=== PATIENT | male | born 1965 | race African-American/Black ===

== ENCOUNTER 2018-06-06 21:11 | Emergency (ER) | payer BC ==
[~2018-06-06] VITALS: Ht 180.3 cm; Wt 102.1 kg
[2018-06-06 21:29] LABS: URINE BILIRUBIN NEGATIVE (Negative); URINE BLOOD NEGATIVE (Negative); URINE CLARITY CLEAR; URINE COLOR YELLOW; URINE GLUCOSE-RANDOM* NEGATIVE (Negative); URINE KETONES NEGATIVE (Negative); URINE LEUKOCYTES-REFLEX NEGATIVE (Negative); URINE NITRITE-REFLEX NEGATIVE (Negative); URINE PROTEIN (DIPSTICK) NEGATIVE (Negative); URINE SPECIFIC GRAVITY 1.015 (1.005-1.035); URINE UROBILINOGEN 0.2 E.U./dl (0.2-1.0)
[2018-06-06 22:00] LABS: ABSOLUTE NEUTROPHILS 3.1 thou/uL (1.4-8.2); BASOPHILS 0.7 % (0.0-2.0); EOSINOPHILS 0.5 % (0.0-3.0); HEMATOCRIT 41.2 % (42.0-52.0); HEMOGLOBIN 13.5 gm/dL (14.0-18.0); LYMPHOCYTES 39.1 % (24.0-44.0); MCH 28.2 pg (26.0-34.0); MCHC 32.9 g/dL (28.0-37.0); MCV 85.7 fL (80.0-100.0); MONOCYTES 8.7 % (1.0-8.0); PLATELET COUNT 186 thou/uL (150-400); RDW 14.6 % (10.5-14.5); WBC 6.1 thou/uL (4.0-11.0)
[2018-06-06 22:06] LABS: CALCIUM 9.2 mg/dL (8.5-10.1); CREATININE 1.3 mg/dL (0.7-1.3); POTASSIUM 3.2 mmol/L (3.5-5.1)
[2018-06-06 22:12] LABS: ALBUMIN 4.2 g/dL (3.4-5.0); TOTAL BILIRUBIN 0.4 mg/dL (<0.1-1.0); TOTAL PROTEIN 7.2 g/dL (6.4-8.2)
[2018-06-07] MEDS ORDERED: ZOFRAN ODT4 MG PO (00:34)
[2018-06-07] MEDS ORDERED: NORCO 5-325 TA1 EACH PO (00:34)
[2018-06-07] MEDS ORDERED: FLOMAX0.4 MG PO (00:34)
[2018-06-07] MEDS ORDERED: IBUPROFEN 600600 M1 PO (00:34)
[2018-06-07 00:43] VITALS: BP 110/66
== END 2018-06-07 00:46 | disposition home or self-care (01) ==
LOC: ER 21:11
PROVIDERS: Emergency Medicine
DX: N20.1 Calculus of ureter (principal); Z85.038 Personal history of other malignant neoplasm of large intestine